=== PATIENT | male | born 1970 | race Caucasian/White ===

== ENCOUNTER 2020-02-14 23:56 | Emergency (ER) | payer OTHER ==
[~2020-02-14] VITALS: Ht 182.9 cm; Wt 112.0 kg
[~2020-02-14 23:56] MED LIST: LOSA50TA14 PO; METF10002 PO; OMAX; PRAV40TA2 PO; VIT D3 PO
[2020-02-15] MEDS ORDERED: ADENOSINE 6 MG/2 ML ONE (00:10)
[2020-02-15] MEDS ORDERED: DILTIAZEM 5 MG/ML, 5ML ONE (00:27)
[2020-02-15] MEDS ORDERED: DILTIAZEM 5 MG/ML, 5ML IVPush ONE (00:30)
--- NOTE | 2020-02-15 00:43 | NUR ---
dr. vargas at bs to further discuss poc with pt. and family at bs. pads in place; crash cart at bs. 15mg of cardizem admin; per dr. vargas holding off on last 10mg at this time and ns bolus infusing.
[2020-02-15 00:52] LABS: BASOPHILS % (AUTO) 1 % (0-1); EOSINOPHILS % (AUTO) 2 % (1-7); LYMPHOCYTES % (AUTO) 42 % (22-44); MEAN CORPUSCULAR HEMOGLOBIN 30.6 pg (27.5-34.5); MEAN CORPUSCULAR HGB CONC 34.6 g/dL (33.2-36.2); MEAN PLATELET VOLUME 8.6 fL (7.4-10.4); MONOCYTES % (AUTO) 10 % (2-9); NEUTROPHILS % (AUTO) 46 % (42-75); PLATELET COUNT 185 x10^3/uL (130-400); RED BLOOD COUNT 5.54 x10^6/uL (4.38-5.82); RED CELL DISTRIBUTION WIDTH 13.4 % (9.4-14.8)
[2020-02-15 00:53] LABS: MD NO
--- NOTE | 2020-02-15 00:53 | NUR ---
final 10mg of cardizem admin per dr. vargas. repeat ekg in process.
[2020-02-15 00:57] LABS: ALANINE AMINOTRANSFERASE 64 U/L (12-78); ANION GAP 6 mmol/L (5-15); CALCIUM 8.7 mg/dL (8.5-10.1); CHLORIDE 106 mmol/L (98-107); CREATININE 1.03 mg/dL (0.7-1.3)
[2020-02-15 01:08] LABS: ALKALINE PHOSPHATASE 102 U/L (45-117); BILIRUBIN,TOTAL 0.6 mg/dL (0.2-1.0); TOTAL PROTEIN 7.1 g/dL (6.4-8.2); TROPONIN I < 0.015 ng/mL (0.000-0.045)
[2020-02-15] MEDS ORDERED: PROPOFOL 10 MG/ML, 20ML ONE (01:18)
[2020-02-15 01:22] LABS: FREE T4 (FREE THYROXINE) 1.01 ng/dL (0.76-1.46)
--- NOTE | 2020-02-15 01:33 | NUR ---
TASK RN: SET UP FOR CARDIOVERSION COMPLETED. PER DR. FIORE OK FOR PT. TO WALK ACROSS THE RAWLS TO BR TO URINATE PT. REFUSING URINAL. PT. AMBULATORY WITH STEADY GAIT.
--- NOTE | 2020-02-15 01:50 | NUR ---
LATE ENTRY: TOTAL OF 125MG OF PROPOFOL ADMIN DURING PROCEDURAL SEDATION; SEE PAPERWORK FOR FURHTER DETAILS.
--- NOTE | 2020-02-15 01:55 | NUR ---
CARDIOVERSION SUCCESSFUL; EKG COMPLETED. SINUS TACH NOTED; RATE 104-111. PT. AWAKE AND TALKING. BACK TO BS.
--- NOTE | 2020-02-15 02:14 | NUR ---
REPORT TO LIBRA MARINO TO ASSUME CARE OF PT.
[2020-02-15] MEDS ORDERED: RIVAROXABAN 20 MG TABLET ONE (02:19)
[2020-02-15] MEDS ORDERED: RIVAROXABAN 20 MG TABLET PO ONE (02:30)
[2020-02-15] MEDS ORDERED: METOPROLOL TARTRATE 50 MG TAB PO ONE (02:30)
[2020-02-15 02:35] VITALS: BP 118/79
--- NOTE | 2020-02-15 02:35 | NUR ---
Patient given discharge instructions and they have confirmed that they understand the instructions. Patient ambulatory with steady gait.
--- NOTE | 2020-02-15 05:01 | NUR ---
75MG OF PROPOFOL WASTED BY THIS RN AND WITNESSED BY SB Rivas RN.
== END 2020-02-15 02:40 | disposition home or self-care (01) ==
LOC: ED 02-15 02:39
DX: I48.91 Unspecified atrial fibrillation (principal); R00.0 Tachycardia, unspecified; I10 Essential (primary) hypertension; E11.9 Type 2 diabetes mellitus without complications
CPT/HCPCS: 36415; 80053; 83735; 84439; 84443; 84484; 85025; 92960; 93005; 99152; 99291